=== PATIENT | male | born 1985 | race Caucasian/White ===

== ENCOUNTER 2018-09-26 08:06 | Emergency (ER) | payer MEDICAID ==
[~2018-09-26] VITALS: Ht 154.9 cm; Wt 66.7 kg
[2018-09-26 08:12] VITALS: BP 114/68; PULSE 92; RESP 18; Ht 154.9 cm; Wt 66.7 kg
--- NOTE | 2018-09-26 09:05 | ERD ---
ER Documentation Chief Complaint Chief Complaint R side head abscess, ST, body aches,denies fever HPI 33-year-old male, previously healthy, presents to the emergency department, complaining of 3 days with a sore throat, subjective fever and worsening of right ear pain. The patient is also complaining of a small painful lump on the scalp that has been there for approximately 1 week. The is also here complaining of upper respiratory symptoms. Otherwise, the patient denies blurred vision, distal weakness, numbness or tingling. ROS All systems reviewed and are negative except as per history of present illness. Medications Home Meds Active Scripts Ibuprofen* (Motrin*) 400 Mg Tab, 400 MG PO Q6H PRN for PAIN AND OR ELEVATED TEMP, #30 TAB Prov:JESUS JORGE MD 09/26/18 Amoxicillin* (Amoxicillin*) 500 Mg Cap, 500 MG PO TID for 7 Days, CAP Prov:JESUS JORGE MD 09/26/18 PMhx/Soc Medical and Surgical Hx: pt denies Medical Hx, pt denies Surgical Hx FmHx Family History: No diabetes, No coronary disease Physical Exam Vitals Vital Signs Date Temp Pulse Resp B/P (MAP) Pulse Ox O2 O2 Flow FiO2 Time Delivery Rate 09/26/18 97.9 92 18 114/68 98 08:12 (83) Physical Exam Patient alert, oriented, vital signs stable. HEENT: Normocephalic, atraumatic, 1 cm well-defined painless lump in the right temporal area. EYES: PERRLA, EOMI, Sclera and conjunctiva appear normal. EARS: Right ear with significant tympanic membrane erythema, retraction and opacity with edema of the canal. Contralateral ear normal. THROAT: Erythematous oropharynx. NECK: Supple, No lymphadenopathy. Full ROM without pain or tenderness. HEART: RRR, no rubs, murmurs, clicks or gallops. LUNGS: Clear to auscultation. ABDOMEN: Soft, non-tender without masses or hepatosplenomegaly. EXTREMITIES: No edema bilaterally. BACK: Full ROM, no deformity, normal back exam NEURO: Cranial nerves grossly intact, no motor or sensory deficit Procedures/MDM Vital signs stable, differential diagnosis include but not limited to: infection bacterial/viral/fungal. Tonsillitis, eustachian dysfunction, allergies, foreign body, cholesteatoma. Less likely mastoiditis, malignant otitis, meningitis. Physical examination and clinical presentation consistent most likely with right otitis media and noninfected cyst of the scalp. During the ED course the patient remained stable, no new complaints. Clinical impression discussed with the patient who agrees with management. The patient is stable to be treated outpatient and will be discharged home with a Rx for antibiotics and ibuprofen. Some side effects of prescribed medications (headache, rash, nausea, vomiting, diarrhea, interactions with other medications) were reviewed. The patient was instructed to follow up with the primary care provider in the next 48h. If symptoms persist, worsen or new symptoms develop, then patient should return to the ED immediately. Disclaimer: Inadvertent spelling and grammatical errors are likely due to EHR/dictation software use and do not reflect on the overall quality of patient care. Also, please note that the electronic time recorded on this note does not necessarily reflect the actual time of the patient encounter. Departure Diagnosis: Primary Impression: Right otitis media with effusion Additional Impression: Dermoid cyst of scalp Condition: Stable Additional Instructions: Muchas nancy por [facility] para briceño servicio. Esperamos que en briceño visita a la hermilo de emergencia briceño problema medico haya sido solucionado y que se sienta mucho mejor. Para estar seguros que briceño mejoria sigue en proceso, le pedimos el favor de hacer juan castillo de seguimiento medico con briceño doctor primario en los proximos 2-4 mukherjee. Lleve con usted estos documentos y las medicinas recetadas. Si samanta sintomas empeoran, NO SE ESPERE, por favor regrese a hermilo de emergencia INMEDIATAMENTE. En ryland que usted no tenga un mdico de atencin primaria: Llame al mdico o clnica comunitaria de referencia que aparece abajo celia las horas de consultorio para hacer juan castillo para que le vean. CLINICAS: [facility] [phone] [id number] [facility] [phone] [id number] [facility] [phone] [address] [facility] [phone] [facility] [phone] [id number] [facility]. [phone] JESUS HONG MD Sep 26, 2018 09:05
[2018-09-26] MEDS ORDERED: AMOX500C2 PO (09:12)
[2018-09-26] MEDS ORDERED: IBUP-1561 PO (09:12)
== END 2018-09-26 09:45 | disposition home or self-care (01) ==
LOC: FTE 08:06
DX: H65.91 Unspecified nonsuppurative otitis media, right ear (principal); L72.9 Follicular cyst of the skin and subcutaneous tissue, unspecified
CPT/HCPCS: 99283